=== PATIENT | male | born 1960 | race Caucasian/White ===

== ENCOUNTER 2021-02-26 09:56 | Outpatient (CLI) | payer OTHER, SELFPAY ==
[2021-02-26] MEDS ORDERED: Magnevist 469MG/ML 20 ML VIAL ONE (13:16)
== END 2021-02-26 09:57 | disposition home or self-care (01) ==
LOC: TBSIIMAG 09:56
PROVIDERS: ATTEND Neurological Surgery
DX: S22.009A Unspecified fracture of unspecified thoracic vertebra, initial encounter for closed fracture (principal); M84.48XA Pathological fracture, other site, initial encounter for fracture; M48.061 Spinal stenosis, lumbar region without neurogenic claudication
CPT/HCPCS: 72158; A9579

== ENCOUNTER 2021-03-28 14:40 | Outpatient (CLI) | payer SELFPAY ==
[2021-03-28 16:24] LABS: Hemoglobin 11.7 g/dL (13.5-17.5); Mean Corpuscular HGB CONC 36.2 g/dL (32.0-36.0); Mean Corpuscular Hemoglobin 33.3 pg (27.0-33.0); Mean Platelet Volume 10.5 fl (7.4-10.4); Platelet Count 276 10x3/uL (150-450); RBC Distribution Width 13.7 % (11.5-14.5); Red Blood Cell (RBC) Count 3.51 10x6/uL (4.32-5.72); White Blood Cell (WBC) Count 6.1 10x3/uL (3.5-10.5)
[2021-03-28 17:03] LABS: Anion Gap 16 mmol/L (10-20); BUN (Urea Nitrogen) 13 mg/dL (8.4-25.7); Calc. Creatinine Clearance 0 mL/min (70-130); Calcium 10.3 mg/dL (7.8-10.44); Carbon Dioxide 24 mmol/L (22-29); Chloride 103 mmol/L (98-107); Glucose 106 mg/dL (70-105); Sodium 139 mmol/L (136-145)
[2021-03-29 01:05] LABS: SARS-CoV-2 PCR by NAA Not Detected (NotDetected)
== END 2021-03-28 14:41 | disposition home or self-care (01) ==
LOC: LABBT 14:40
PROVIDERS: ATTEND Neurological Surgery
DX: Z01.818 Encounter for other preprocedural examination (principal); M48.062 Spinal stenosis, lumbar region with neurogenic claudication; Z20.822 Contact with and (suspected) exposure to COVID-19
CPT/HCPCS: 80048; 85027; 87635; 93005; 93010; U0003; U0005

== ENCOUNTER 2021-04-02 05:55 | Observation (INO) | payer OTHER, SELFPAY ==
[2021-04-02] MEDS ORDERED: Fentanyl 100 MCG/2 ML VIAL ONE ×3 (06:36→09:54)
[2021-04-02] MEDS ORDERED: PROPOFOL 200 MG/20 ML VIAL ONE (07:31)
[2021-04-02] MEDS ORDERED: Rocuronium Bromide 10 MG/ML (10ML VIAL) ONE (07:31)
[2021-04-02] MEDS ORDERED: Dexamethasone 20 MG/5 ML VIAL ONE (07:31)
[2021-04-02] MEDS ORDERED: Ketorolac Tromethamine 30 MG/ML VIAL ONE (07:31)
[2021-04-02] MEDS ORDERED: Ondansetron PF 4 MG/2 ML Vial ONE (07:31)
[2021-04-02] MEDS ORDERED: PHENYLEPHRINE-NS 100 MCG/ML 10 ML SYRINGE ONE ×2 (07:31→08:55)
[2021-04-02] MEDS ORDERED: ePHEDrine Sulfate 50 MG/10 ML VIAL ONE (07:31)
[2021-04-02] MEDS ORDERED: Lidocaine 1% PF 5 ML VIAL ONE (07:31)
[2021-04-02] MEDS ORDERED: SUGAMMADEX SODIUM 200 MG/2 ML VIAL ONE (08:52)
[2021-04-02] MEDS ORDERED: HYDROmorphone 2 MG/ML VIAL SLOW IVP PRN (09:24)
[2021-04-02] MEDS ORDERED: Meperidine HCl/PF 25 MG/ML VIAL SLOW IVP PRN (09:24)
[2021-04-02] MEDS ORDERED: Ondansetron HCl/PF 4 MG/2 ML Vial IVP PRN (09:24)
[2021-04-02] MEDS ORDERED: Promethazine HCl 25 MG/ML VIAL SLOW IVP PRN (09:24)
[2021-04-02] MEDS ORDERED: Ondansetron PF 4 MG/2 ML Vial SLOW IVP PRN (11:10)
[2021-04-02] MEDS ORDERED: Morphine 2 MG/ML VIAL SLOW IVP PRN (11:15)
[2021-04-02] MEDS ORDERED: Promethazine 25 MG TAB PO PRN (11:15)
[2021-04-02] MEDS ORDERED: Promethazine HCl 12.5 MG SUPP PR PRN (11:15)
[2021-04-02] MEDS ORDERED: Morphine 4 MG/ML VIAL SLOW IVP PRN (11:15)
[2021-04-02] MEDS ORDERED: Promethazine HCl 25 MG/ML VIAL IM PRN (11:15)
[2021-04-02] MEDS ORDERED: Milk Of Magnesia 30 ML UDCUP PO PRN (11:15)
[2021-04-02] MEDS ORDERED: Mag-Al 1200 mg/1200 mg/30 ML UDCUP PO PRN (11:15)
[2021-04-02] MEDS ORDERED: diphenhydrAMINE 50 MG/ML VIAL IVP PRN (11:15)
[2021-04-02] MEDS ORDERED: diphenhydrAMINE 25 MG CAP PO PRN (11:15)
[2021-04-02] MEDS ORDERED: Acetaminophen/Codeine 30-300mg Tablet PO PRN (11:15)
[2021-04-02] MEDS ORDERED: traMADol HCl 50 MG TAB PO PRN ×2 (11:15)
[2021-04-02] MEDS ORDERED: tiZANidine HCl 4 MG TAB PO PRN (11:15)
[2021-04-02] MEDS: Sodium Chloride 0.9% 1,000 ML IV SCH (14:02)
[2021-04-02] MEDS: CEFAZOLIN 2 GM in Premix Bag 1 BAG IVPB SCH ×2 (14:07→21:28)
[2021-04-02 14:41] VITALS: BMI 25.9
[2021-04-02] MEDS: Acetaminophen/Codeine 30-300mg Tablet PO PRN (16:54)
[2021-04-03] MEDS: Acetaminophen/Codeine 30-300mg Tablet PO PRN ×2 (03:15→08:29)
[2021-04-03] MEDS: Sodium Chloride 0.9% 1,000 ML IV SCH (05:50)
[2021-04-03] MEDS: CEFAZOLIN 2 GM in Premix Bag 1 BAG IVPB SCH (05:50)
[2021-04-03] MEDS ORDERED: Tamsulosin HCl 0.4 MG CAP PO SCH (06:00)
[2021-04-03 07:48] VITALS: BP 102/68
[2021-04-03 11:11] VITALS: TEMP 99.1
== END 2021-04-03 11:10 | disposition home or self-care (01) ==
LOC: SDC 05:55 → SURG A 09:39
PROVIDERS: ADMIT Neurological Surgery; ATTEND Neurological Surgery
PROC: 0SG1071 Fusion of 2 or more Lumbar Vertebral Joints with Autologous Tissue Substitute, Posterior Approach, Posterior Column, Open Approach (ICD-10-PCS; principal; 2021-04-02)
PROC: 0QB00ZX Excision of Lumbar Vertebra, Open Approach, Diagnostic (ICD-10-PCS; 2021-04-02)
DX: M48.062 Spinal stenosis, lumbar region with neurogenic claudication (principal); D49.2 Neoplasm of unspecified behavior of bone, soft tissue, and skin; F17.200 Nicotine dependence, unspecified, uncomplicated
CPT/HCPCS: 76000; 88307; 88311; 88341; 88342; 96365; 96376; C1713; C1768; G0378; J0690; J1100; J1885; J2405; J2704; J3010; J3370; J3490

== ENCOUNTER 2021-04-13 08:21 | Day surgery (SDC) | payer OTHER, SELFPAY ==
[2021-04-06 12:44] VITALS: BMI 25.8
[2021-04-13 09:03] LABS: PTT 27.4 sec (22.9-36.1); Prothrombin Time 13.8 sec (12.0-14.7)
[2021-04-13 10:47] VITALS: BP 125/71; TEMP 97.4
== END 2021-04-13 12:10 | disposition home or self-care (01) ==
LOC: CT 08:21
PROVIDERS: ATTEND Neurological Surgery
PROC: 07DR3ZX Extraction of Iliac Bone Marrow, Percutaneous Approach, Diagnostic (ICD-10-PCS; principal; 2021-04-13)
PROC: 079T3ZX Drainage of Bone Marrow, Percutaneous Approach, Diagnostic (ICD-10-PCS; principal; 2021-04-13)
DX: C90.00 Multiple myeloma not having achieved remission (principal); M48.062 Spinal stenosis, lumbar region with neurogenic claudication; K21.9 Gastro-esophageal reflux disease without esophagitis
CPT/HCPCS: 20225; 77012; 85097; 85610; 85730; 88184; 88237; 88305; 88313

== ENCOUNTER 2021-04-17 14:56 | Outpatient (CLI) | payer SELFPAY | END 2021-04-17 14:57 | disposition home or self-care (01) | LOC: TBSIIMAG 14:56 | PROVIDERS: ATTEND Physician Assistant | DX: M48.062 Spinal stenosis, lumbar region with neurogenic claudication (principal); M43.8X6 Other specified deforming dorsopathies, lumbar region; Z98.890 Other specified postprocedural states | CPT/HCPCS: 72100 ==

== ENCOUNTER 2022-10-02 09:30 | Outpatient (CLI) | payer BC | END 2022-10-02 09:31 | disposition home or self-care (01) | LOC: PET 09:30 | PROVIDERS: ATTEND Internal Medicine Hematology & Oncology | DX: C90.00 Multiple myeloma not having achieved remission (principal); C79.51 Secondary malignant neoplasm of bone; M89.9 Disorder of bone, unspecified | CPT/HCPCS: 78816; A9552 ==

== ENCOUNTER 2022-10-09 12:42 | Outpatient (CLI) | payer BC | END 2022-10-09 12:43 | disposition home or self-care (01) | LOC: RAD 12:42 | PROVIDERS: ATTEND Internal Medicine Hematology & Oncology | DX: C79.51 Secondary malignant neoplasm of bone (principal); C90.00 Multiple myeloma not having achieved remission; R22.41 Localized swelling, mass and lump, right lower limb ==